=== PATIENT | female | born 1965 | race African-American/Black ===

== ENCOUNTER 2018-03-24 11:32 | Emergency (ER) | payer SELFPAY ==
[~2018-03-24] VITALS: Ht 157.5 cm; Wt 49.9 kg
[2018-03-24 11:40] VITALS: BP 129/78
[2018-03-24] MEDS ORDERED: NEXIUM20 MG ORAL (12:42)
--- NOTE | 2018-03-24 12:43 | Emergency Room Report ---
History of Present Illness General Chief Complaint: Gastrointestinal Illness Source: Patient Present Illness HPI 52-year-old female patient presents to ER complaining of reflux symptoms for the past year. Patient reports history of reflux symptoms for the past several years. Reports she stopped taking her famotidine one year ago due to discontinuation of her symptoms, states was instructed to by PCP. Reports she had repeat symptoms a few months and her current medication was not working at that time but symptoms discontinued again. Patient reports symptoms have now been present for the past 2 weeks after not being present for several months. Requesting new medication, states Famotidine medication does not work, states she takes medication after meals. Denies other acute symptoms. Denies vomiting blood, chest pain, shortness of breath, abdominal pain. Reports she eats a lot of spicy foods. denies diarrhea, constipation, headache. Denies vomiting blood. Allergies: Coded Allergies: No Known Allergies (Unverified , 03/24/18) Patient History Past Medical History: see triage record Reviewed Nursing Documentation: PMH: Agreed; PSxH: Agreed Nursing Documentation-PMH Past Medical History: No History, Except For Hx Gastrointestinal Problems: Yes - Acid reflux Review of Systems All Other Systems: negative except mentioned in HPI Physical Exam Vital Signs Date Time Temp Pulse Resp B/P (MAP) Pulse Ox O2 Delivery O2 Flow Rate FiO2 03/24/18 11:40 97.2 75 20 129/78 97 Room Air 97.2 Sp02 EP Interpretation: reviewed, normal General Appearance: well appearing, no apparent distress, alert, GCS 15, non- toxic Head: normocephalic, atraumatic Eyes: bilateral eye normal inspection, bilateral eye PERRL ENT: hearing grossly normal, normal pharynx, no angioedema, normal voice, TMs + canals normal, uvula midline, moist mucus membranes, other - no pharyngeal erythema, no tonsillar swelling or exudates Neck: full range of motion Respiratory: lungs clear, normal breath sounds, no rhonchi, no respiratory distress, no accessory muscle use, no wheezing, speaking full sentences Cardiovascular #1: regular rate, rhythm, no edema Gastrointestinal: non tender, soft, no mass, non-distended, no guarding, no rebound, other - negative Gamino Genitourinary: no CVA tenderness Musculoskeletal: back normal, digits/nails normal, gait/station normal, normal range of motion, non-tender Neurologic: alert, oriented x3, responsive, motor strength/tone normal, sensory intact Psychiatric: mood/affect normal Skin: no rash Lymphatic: no adenopathy Medical Decision Making PA Attestation Dr. Lisa is my supervising Physician whom patient management has been discussed with. Diagnostic Impression: Primary Impression: Acid reflux ER Course Pt. presents to the ED c/o intermittent epigastric pain. Ddx considered but are not limited to esophagitis, influenza, GERD, vomiting, viral syndrome, PUD. Vital signs: are WNL, pt. is afebrile ORDERS: none required at this time, the diagnosis is clinical ER COURSE: Physical exam benign, no dullness tenderness to palpation, lungs clear to auscultation. Patient has no alarm signs at this time. patient informed that symptoms of GERD can return if she discontinues medication. Needs to follow-up with primary care provider for further treatment , management of symptoms, and referral as needed. Consult with Dr. Lisa, will provide patient with Nexium medication for treatment of symptoms due to patient reporting that current medications no longer working. Informed patient of ways to help alleviate symptoms of acid reflux. Patient reports she will contact primary care provider for appointment. ER precautions given. DISCHARGE: Rx provided for Nexium At this time pt is stable for d/c to home. Patient is resting, in no acute distress, nontoxic appearing. Will provide with patient care instructions and any necessary prescriptions. Patient to take medication as instructed. Care plan and follow-up instructions provided. Patient questions asked and answered. Patient reports understanding and agreement to treatment plan. Patient instructed to follow-up with primary care provider in 3- 5 days to discuss further treatment and referral to GI specialist for evaluation. Patient states understanding and agreement to treatment plan ER precautions given. Patient instructed to return to ER immediately for any new or worsening of symptoms - Please note that this Emergency Department Report was dictated using [employer] educator technology software, occasionally this can lead to erroneous entry secondary to interpretation by the dictation equipment. Last Vital Signs Date Time Temp Pulse Resp B/P (MAP) Pulse Ox O2 Delivery O2 Flow Rate FiO2 03/24/18 11:40 97.2 75 20 129/78 97 Room Air 97.2 Disposition: HOME, SELF-CARE Condition: Stable Scripts Esomeprazole Magnesium (NEXIUM) 20 Mg Capsule. 20 MG ORAL DAILY for 30 Days, #30 CAP Prov: Eric Milton 03/24/18 Patient Instructions: Food Choices for Gastroesophageal Reflux Disease, Adult, [id number], Gastroesophageal Reflux Disease, Adult, [id number] Additional Instructions: Followup with primary care provider in 3 -5 days for further treatment and referral to GI. Keep food journal of foods eaten and times of symptom onset. Do not eat late night meals. Take medications as directed. Patient questions asked and answered. ER precautions given, patient instructed to return to ER immediately for any new or worsening of symptoms including but not limited to chest pain, SOB, abdominal pain, blood in vomit. Drink fluids as tolerated to prevent dehydration. Take Tylenol OTC for pain, easier on stomach. Avoid spicy foods, avoid dairy. Do not eat late night meals. Elevate head of bed when sleeping. Eric Milton March 24, 2018 12:43
== END 2018-03-24 13:30 | disposition home or self-care (01) ==
LOC: EMR 13:05
DX: K21.9 Gastro-esophageal reflux disease without esophagitis (principal)
CPT/HCPCS: 99283